=== PATIENT | female | born 1950 | race Caucasian/White ===

== ENCOUNTER 2020-12-12 19:12 | Inpatient (IN) | payer MEDICARE, OTHER ==
[~2020-12-12] VITALS: Ht 163 cm; Wt 67.7 kg
[2020-12-12] MEDS ORDERED: AMBIEN CR6.25 MG PO (20:20)
[2020-12-12] MEDS ORDERED: PRILOSEC20 MG PO (20:21)
[2020-12-12] MEDS ORDERED: LIPITOR40 MG PO (20:21)
[2020-12-12] MEDS ORDERED: CYCLOBENZAPRINE10 MG PO (20:21)
[2020-12-12] MEDS ORDERED: CELEXA20 MG PO (20:22)
[2020-12-12 22:27] LABS: EOSINOPHIL 0.2 % (0-7); HCT 38.9 % (37.0-47.0); HGB 12.8 g/dl (12.5-16.0); LYMPHOCYTE 11.6 % (15-48); MCH 31.1 pg (25.0-31.0); MCHC 32.9 g/dL (32.0-36.0); MCV 94.6 fL (78.0-100.0); MONOCYTE 7.9 % (0-12); NRBC 0; PLT 243 K/uL (150-400); RBC 4.11 M/uL (4.20-5.40); RDW 13.6 % (11.5-14.0); WBC 9.4 K/uL (4.0-10.5)
[2020-12-12 22:36] LABS: INR 1.04 (0.9-1.2); PROTHROMBIN TIME 12.9 SECONDS (11.4-13.6)
[2020-12-12 22:37] LABS: PTT 32.8 SECONDS (22.2-34.7)
[2020-12-12 22:46] LABS: ALBUMIN 3.4 g/dL (3.4-5.0); BILIRUBIN - TOTAL 0.3 mg/dL (0.2-1.0); BUN/CREAT RATIO (CALC) 30.2 RATIO; CREATININE 0.53 mg/dL (0.51-0.95); GLOBULIN (CALCULATION) 3.2 g/dL; PHOSPHORUS 4.2 mg/dL (2.6-4.7); POTASSIUM 4.1 mmol/L (3.5-5.1); TOTAL PROTEIN 6.6 g/dL (6.4-8.2)
--- NOTE | 2020-12-13 14:25 | NUR ---
1422 DR KHAN NOTIFIED OF PTS HGBA1C OF 6.1, BLOOD GLUCOSE FINGER STICK OF 151, DR PENA ORDERED BLOOD GLUCOSE CHECKS BID. DR KHAN WANTS TO BE NOTIFIED OF SRINI SLOAN.
[2020-12-14 08:36] LABS: BASOPHIL 0.8 % (0-2); EOSINOPHIL 0.2 % (0-7); HCT 37.8 % (37.0-47.0); LYMPHOCYTE 15.9 % (15-48); MCH 30.5 pg (25.0-31.0); MCHC 31.7 g/dL (32.0-36.0); MCV 96.2 fL (78.0-100.0); MONOCYTE 9.9 % (0-12); MPV 9.3 fL (6.0-9.5); NEUTROPHIL 72.8 % (41-80); NRBC 0; PLT 220 K/uL (150-400); RBC 3.93 M/uL (4.20-5.40); RDW 13.9 % (11.5-14.0); WBC 8.6 K/uL (4.0-10.5)
[2020-12-14 09:04] LABS: BUN/CREAT RATIO (CALC) 17.3 RATIO; CREATININE 0.52 mg/dL (0.51-0.95); POTASSIUM 3.7 mmol/L (3.5-5.1)
[2020-12-15 09:41] LABS: BILIRUBIN NEGATIVE (NEGATIVE); BLOOD TRACE-LYSED Ery/uL (NEGATIVE); CLARITY CLEAR (CLEAR); COLOR YELLOW (YELLOW); GLUCOSE (U) NORMAL (NORMAL); LEUKOCYTES 2+ Leu/uL (NEGATIVE); NITRITE POSITIVE (NEGATIVE); PROTEIN NEGATIVE (NEGATIVE); SPECIFIC GRAVITY 1.015 (1.001-1.030); UROBILINOGEN 0.2 mg/dL (0.2-1.0)
--- NOTE | 2020-12-15 14:36 | NUR ---
PER VLAD WARE, ORTHO LIASION. PT. REQUESTS MINDI LEUNG. VLAD ADVISED FAMILY TO CONTACT [facility] FOR POSSIBLE ADMISSION. TC FROM [employer] [facility] WITH [facility]. SHE ADVISED THAT THEY ARE NOW ACCEPTING SHORT TERM [facility] REFERRALS. FAXED CLINICAL INFORMATION TO [phone]. [facility] PHONE NUMBER IS [phone] EXT. [phone].
[2020-12-16 05:58] LABS: BASOPHIL 0.3 % (0-2); EOSINOPHIL 0.1 % (0-7); HCT 25.9 % (37.0-47.0); HGB 8.5 g/dl (12.5-16.0); MCH 31.6 pg (25.0-31.0); MCHC 32.8 g/dL (32.0-36.0); MCV 96.3 fL (78.0-100.0); MONOCYTE 8.8 % (0-12); NEUTROPHIL 78.1 % (41-80); NRBC 0; PLT 214 K/uL (150-400); RBC 2.69 M/uL (4.20-5.40); RDW 13.8 % (11.5-14.0); WBC 8.6 K/uL (4.0-10.5)
[2020-12-16 06:25] LABS: BUN/CREAT RATIO (CALC) 22.6 RATIO; CREATININE 0.53 mg/dL (0.51-0.95); POTASSIUM 3.8 mmol/L (3.5-5.1)
--- NOTE | 2020-12-16 13:11 | NUR ---
MET WITH PT AND SPOUSE. ADVISED OF PT. BEING ACCEPTED AT [facility]. PT. SIGNED THE CHOICE FORM AFFIATIONS EXPLAINED. PT. ALSO SIGNED IM WELL.
[2020-12-17 05:51] LABS: BASOPHIL 0.7 % (0-2); EOSINOPHIL 2.3 % (0-7); HCT 24.8 % (37.0-47.0); LYMPHOCYTE 17.9 % (15-48); MCHC 32.3 g/dL (32.0-36.0); MCV 96.1 fL (78.0-100.0); MONOCYTE 8.5 % (0-12); MPV 9.5 fL (6.0-9.5); NEUTROPHIL 69.8 % (41-80); NRBC 0.3; PLT 239 K/uL (150-400); RBC 2.58 M/uL (4.20-5.40); RDW 13.9 % (11.5-14.0); WBC 7.5 K/uL (4.0-10.5)
[2020-12-17 06:31] LABS: BUN/CREAT RATIO (CALC) 33.3 RATIO; CREATININE 0.51 mg/dL (0.51-0.95); POTASSIUM 3.8 mmol/L (3.5-5.1)
[2020-12-18 06:52] LABS: BASOPHIL 1.2 % (0-2); EOSINOPHIL 3.3 % (0-7); HCT 27.3 % (37.0-47.0); MCV 94.1 fL (78.0-100.0); MONOCYTE 9.1 % (0-12); MPV 9.9 fL (6.0-9.5); NEUTROPHIL 66.6 % (41-80); NRBC 0.8; PLT 280 K/uL (150-400); WBC 7.8 K/uL (4.0-10.5)
[2020-12-18 07:18] LABS: CREATININE 0.5 mg/dL (0.51-0.95)
[2020-12-18 09:25] LABS: FT4 (FREE T4) 1.5 ng/dL (0.76-1.46)
--- NOTE | 2020-12-18 11:01 | NUR ---
juliet maier'd at [id number] 225cc output in chung bag, no complaications, pain or distress noted. pt stated she will call when she feels urge to use ther estroom.
--- NOTE | 2020-12-19 09:16 | NUR ---
CALL REPORT TO MINDI LEUNG, FAX D/C SUMMARY TO [phone].
[2020-12-19] MEDS ORDERED: LOPRESSOR25 MG PO (09:31)
[2020-12-19] MEDS ORDERED: PERCOCET 10-321 EACH PO (09:31)
[2020-12-19] MEDS ORDERED: FEOSOL325 MG PO (09:31)
[2020-12-19] MEDS ORDERED: AMBIEN CR6.25 MG PO (09:31)
[2020-12-19] MEDS ORDERED: MIRALAX17 GM PO (09:31)
[2020-12-19] MEDS ORDERED: XARELTO10 MG PO (09:33)
== END 2020-12-19 13:37 | DRG 480 ==
LOC: FTCU 19:12 → FMS 19:12 → FTCU 12-15 16:07 → FMS 12-17 09:27 → FTCU 12-17 14:30 → FMS 12-18 15:16
PROVIDERS: Internal Medicine; Legal Medicine; Nurse Practitioner; ADMIT Allergy & Immunology Allergy
PROC: 0QS706Z Reposition Left Upper Femur with Intramedullary Internal Fixation Device, Open Approach (ICD-10-PCS; principal; 2020-12-15 09:20)
PROC: 30233N1 Transfusion of Nonautologous Red Blood Cells into Peripheral Vein, Percutaneous Approach (ICD-10-PCS; 2020-12-17)
DX: S72.142A Displaced intertrochanteric fracture of left femur, initial encounter for closed fracture (principal); J95.821 Acute postprocedural respiratory failure; D62 Acute posthemorrhagic anemia; G81.94 Hemiplegia, unspecified affecting left nondominant side; Z20.822 Contact with and (suspected) exposure to COVID-19; E78.5 Hyperlipidemia, unspecified; R73.03 Prediabetes; L89.152 Pressure ulcer of sacral region, stage 2; E87.70 Fluid overload, unspecified; Z90.49 Acquired absence of other specified parts of digestive tract; Z98.890 Other specified postprocedural states; Z87.820 Personal history of traumatic brain injury; W01.0XXA Fall on same level from slipping, tripping and stumbling without subsequent striking against object, initial encounter; Y92.009 Unspecified place in unspecified non-institutional (private) residence as the place of occurrence of the external cause; Z79.899 Other long term (current) drug therapy
CPT/HCPCS: 36415; 36430; 70450; 71045; 73501; 80048; 80053; 81003; 82962; 83036; 83735; 84100; 84439; 84443; 85025; 85610; 85730; 86850; 86900; 86901; 86922; 87076; 87088; 87186; 93005; 94010; 94640; 97110; 97162; 97166; 97530; 97530-GP; 97535; C1713; C9113; J0697; J1100; J1200; J1650; J1940; J2001; J2250; J2270; J2405; J2704; J2795; J3010; J7040; J7120; P9016; U0002

== ENCOUNTER 2020-12-23 11:32 | Day surgery (SDCO) | payer MEDICARE, OTHER ==
[~2020-12-23] VITALS: Ht 162.6 cm; Wt 69.5 kg
[~2020-12-23 11:32] MED LIST: AMBIEN CR6.25 MG PO; CELEXA20 MG PO; CYCLOBENZAPRINE10 MG PO; FEOSOL325 MG PO; LIPITOR40 MG PO; LOPRESSOR25 MG PO; MIRALAX17 GM PO; PERCOCET 10-321 EACH PO; PRILOSEC20 MG PO; XARELTO10 MG PO
[2020-12-23 12:45] LABS: EOSINOPHIL 2.4 % (0-7); HCT 20.8 % (37.0-47.0); LYMPHOCYTE 15.8 % (15-48); MCH 31.7 pg (25.0-31.0); MCHC 31.7 g/dL (32.0-36.0); MONOCYTE 10.5 % (0-12); MPV 9.2 fL (6.0-9.5); NEUTROPHIL 67.2 % (41-80); PLT 506 K/uL (150-400); RBC 2.08 M/uL (4.20-5.40); RDW 15.9 % (11.5-14.0); WBC 10.1 K/uL (4.0-10.5)
[2020-12-23 12:50] LABS: NRBC 7.6
[2020-12-23 12:51] LABS: HGB 6.6 g/dl (12.5-16.0)
[2020-12-23] MEDS ORDERED: LIPITOR40 MG PO (16:45)
[2020-12-23] MEDS ORDERED: AMBIEN5 MG PO (16:54)
[2020-12-23] MEDS ORDERED: MELATONIN5 M2 PO (16:57)
[2020-12-24 05:53] LABS: EOSINOPHIL 3.7 % (0-7); HCT 26.6 % (37.0-47.0); HGB 8.5 g/dl (12.5-16.0); LYMPHOCYTE 13.6 % (15-48); MCH 30.2 pg (25.0-31.0); MONOCYTE 9.8 % (0-12); MPV 8.8 fL (6.0-9.5); NRBC 6.7; PLT 468 K/uL (150-400); RBC 2.81 M/uL (4.20-5.40); RDW 18.3 % (11.5-14.0); WBC 8.4 K/uL (4.0-10.5)
[2020-12-24 06:08] LABS: MCV 94.7 fL (78.0-100.0)
[2020-12-24 06:25] LABS: ALBUMIN 2.2 g/dL (3.4-5.0); BUN/CREAT RATIO (CALC) 21.9 RATIO; CREATININE 0.64 mg/dL (0.51-0.95); GLOBULIN (CALCULATION) 3.2 g/dL; POTASSIUM 4.1 mmol/L (3.5-5.1); TOTAL PROTEIN 5.4 g/dL (6.4-8.2)
[2020-12-24 12:29] LABS: HCT 29.1 % (37.0-47.0); HGB 9.2 g/dL (12.5-16.0)
[2020-12-24] MEDS ORDERED: OXYCODONE-ACET1 EACH PO (13:58)
[2020-12-24] MEDS ORDERED: ASPIRIN EC81 MG PO ×2 (13:58→14:09)
--- NOTE | 2020-12-24 14:45 | NUR ---
PT. TO DISCHARGE BACK TO THE [facility] WHERE SHE WILL CONTINUE HER PHYSICAL THERAPY FOR HER BROKEN HIP.
== END 2020-12-24 14:54 ==
LOC: FER 11:32 → FMS 13:10
PROVIDERS: Emergency Medicine; Nurse Practitioner; ADMIT Internal Medicine
DX: D62 Acute posthemorrhagic anemia (principal); E78.5 Hyperlipidemia, unspecified; Z80.3 Family history of malignant neoplasm of breast; Z83.3 Family history of diabetes mellitus; Z20.822 Contact with and (suspected) exposure to COVID-19
CPT/HCPCS: 36415; 36430; 73502; 73552; 80053; 85014; 85018; 85025; 86850; 86900; 86901; 86922; 97110; 97162; 97166; 97530-GP; 97535; G0378; J2270; J2405; P9016; U0002